=== PATIENT | female | born 1990 | race Caucasian/White ===

== ENCOUNTER → 2016-04-16 | Outpatient (CLI) | payer MEDICAID ==
--- NOTE | 2016-04-16 13:33 | US ---
Transabdominal and Transvaginal Pelvic Ultrasound History: Elevated testosterone, 25-year-old female with LMP April 03, 2016. Comparison: None available. Findings: Transabdominal: The uterus measures 8.4 x 5.4 x 3.8 cm. No fibroids are visible. The endometrium is n ormal thickness. The right ovary is not visible. The bladder is normal. Transvaginal: No fibroids are present. Uterine visualization is limited by positioning, with no visib le fibroids. The visible endometrium is homogeneous and measures 8 mm. The left ovary measures 2.1 x 2.4 x 2.9 cm. The right ovary is not visible. No adnexal masses are identified. Normal arterial blood flow is documented to the left ovary by Doppler ultrasound. There is no free fluid. Impression: Nonvisualization of the right ovary, otherwise normal pelvic ultrasound.
== END ==
LOC: BRMIMAGING 12:58
PROVIDERS: ATTEND Registered Nurse
DX: E34.9 Endocrine disorder, unspecified (principal)
CPT/HCPCS: 76856-PO